=== PATIENT | male | born 1980 | race Hispanic/Latino ===

== ENCOUNTER 2019-04-21 00:50 | Emergency (ER) | payer BC ==
[~2019-04-21] VITALS: Ht 167.6 cm; Wt 79.4 kg
--- NOTE | 2019-04-21 01:47 | NUR ---
POISON CONTROL CONTACTED, SPOKE TO LISA GALLARDO, MONITOR PT FOR 4-6 HRS
[2019-04-21 02:42] LABS: BASOPHILS # (AUTO) 0.1 (0.0-0.1); BASOPHILS % 0.7 % (0.0-1.0); EOSINOPHILS # (AUTO) 0.6 (0.0-0.4); EOSINOPHILS % 5.6 % (0.0-6.0); HEMATOCRIT 47.7 % (38.2-49.6); HEMOGLOBIN 16.8 g/dL (14.0-18.0); LYMPHOCYTES # (AUTO) 3.7 (1.0-3.2); LYMPHOCYTES % 36.5 % (18.0-39.1); MEAN CORPUSCULAR HEMOGLOBIN 31.1 pg (28-32); MEAN CORPUSCULAR HGB CONC 35.2 g/dL (31-35); MEAN CORPUSCULAR VOLUME 88.2 fL (81-99); MONOCYTES # (AUTO) 1.1 (0.2-0.8); NEUTROPHILS # (AUTO) 4.6 (2.1-6.9); PLATELET COUNT 259 x10e3/uL (140-360); RED BLOOD COUNT 5.41 x10e6/uL (4.3-5.7); RED CELL DISTRIBUTION WIDTH 12.1 % (11.7-14.4)
[2019-04-21 02:50] LABS: AMPHETAMINES SCREEN,URINE POSITIVE (NEGATIVE); BENZODIAZEPINES SCREEN,URINE POSITIVE (NEGATIVE); PHENCYCLIDINE SCREEN,URINE NEGATIVE (NEGATIVE)
[2019-04-21] MEDS ORDERED: DEXTROSE 50% SYRINGE 50 ML IV STA (03:00)
[2019-04-21 03:01] LABS: ALANINE AMINOTRANSFERASE 19 IU/L (0-55); ALBUMIN 3.9 g/dL (3.5-5.0); ALBUMIN/GLOBULIN RATIO 1.1 (0.8-2.0); ALKALINE PHOSPHATASE 56 IU/L (40-150); ANION GAP 15.7 mmol/L (8-16); BLOOD UREA NITROGEN 8 mg/dL (7-26); BUN/CREATININE RATIO 9 (6-25); CALCIUM 9.1 mg/dL (8.4-10.2); CARBON DIOXIDE 26 mmol/L (22-29); CHLORIDE 103 mmol/L (98-107); CREATININE, SERUM 0.85 mg/dL (0.72-1.25); EST GLOMERULAR FILTRATION RATE > 60 ML/MIN (60-); POTASSIUM 3.7 mmol/L (3.5-5.1); SODIUM 141 mmol/L (136-145)
[2019-04-21 03:07] LABS: GLUCOSE 56 mg/dL (74-118)
[2019-04-21] MEDS ORDERED: SODIUM CHLORIDE 0.9% 1000ML 1,000 ML ONE (03:13)
[2019-04-21] MEDS ORDERED: DEXTROSE 50% SYRINGE 50 ML IV ONE (03:13)
[2019-04-21] MEDS ORDERED: SODIUM CHLORIDE 0.9% 1000ML 1,000 ML IV ONE ×2 (03:15→05:00)
[2019-04-21 06:35] LABS: BASOPHILS # (AUTO) 0.1 (0.0-0.1); BASOPHILS % 0.7 % (0.0-1.0); EOSINOPHILS # (AUTO) 0.6 (0.0-0.4); EOSINOPHILS % 6.9 % (0.0-6.0); HEMATOCRIT 43.6 % (38.2-49.6); HEMOGLOBIN 15.3 g/dL (14.0-18.0); LYMPHOCYTES # (AUTO) 3.4 (1.0-3.2); LYMPHOCYTES % 40.5 % (18.0-39.1); MEAN CORPUSCULAR HEMOGLOBIN 31.2 pg (28-32); MEAN CORPUSCULAR HGB CONC 35.1 g/dL (31-35); MEAN CORPUSCULAR VOLUME 88.8 fL (81-99); MONOCYTES # (AUTO) 0.7 (0.2-0.8); MONOCYTES % 8.2 % (4.4-11.3); NEUTROPHILS # (AUTO) 3.6 (2.1-6.9); NEUTROPHILS % 43.3 % (38.7-80.0); PLATELET COUNT 250 x10e3/uL (140-360); RED BLOOD COUNT 4.91 x10e6/uL (4.3-5.7); RED CELL DISTRIBUTION WIDTH 12.1 % (11.7-14.4)
[2019-04-21 06:49] LABS: ANION GAP 9.9 mmol/L (8-16); BLOOD UREA NITROGEN 7 mg/dL (7-26); BUN/CREATININE RATIO 10 (6-25); CARBON DIOXIDE 26 mmol/L (22-29); CHLORIDE 110 mmol/L (98-107); CREATININE, SERUM 0.73 mg/dL (0.72-1.25); EST GLOMERULAR FILTRATION RATE > 60 ML/MIN (60-); GLUCOSE 153 mg/dL (74-118); POTASSIUM 3.9 mmol/L (3.5-5.1); SODIUM 142 mmol/L (136-145)
[2019-04-21 06:50] LABS: CREATINE KINASE 85 IU/L (30-200)
[2019-04-21 07:39] VITALS: BP 101/63
== END 2019-04-21 08:20 | disposition home or self-care (01) ==
LOC: ER 00:50
DX: F14.14 Cocaine abuse with cocaine-induced mood disorder (principal); F11.14 Opioid abuse with opioid-induced mood disorder; F12.188 Cannabis abuse with other cannabis-induced disorder; I10 Essential (primary) hypertension; F32.9 Major depressive disorder, single episode, unspecified
CPT/HCPCS: 36415; 80048; 80053; 80307; 80320; 80329; 82550; 82553; 84484; 85025; 93005; 99283; J7030; J7799

== ENCOUNTER 2019-04-28 02:15 | Emergency (ER) | payer BC ==
[~2019-04-28] VITALS: Ht 167.6 cm; Wt 79.4 kg
[2019-04-28 02:37] LABS: BASOPHILS # (AUTO) 0.1 (0.0-0.1); BASOPHILS % 0.6 % (0.0-1.0); EOSINOPHILS # (AUTO) 0.8 (0.0-0.4); HEMATOCRIT 51.6 % (38.2-49.6); HEMOGLOBIN 18.3 g/dL (14.0-18.0); LYMPHOCYTES # (AUTO) 3.9 (1.0-3.2); LYMPHOCYTES % 28.9 % (18.0-39.1); MEAN CORPUSCULAR HEMOGLOBIN 31.7 pg (28-32); MEAN CORPUSCULAR HGB CONC 35.5 g/dL (31-35); MEAN CORPUSCULAR VOLUME 89.4 fL (81-99); MONOCYTES # (AUTO) 1.1 (0.2-0.8); MONOCYTES % 8.4 % (4.4-11.3); NEUTROPHILS # (AUTO) 7.5 (2.1-6.9); NEUTROPHILS % 55.8 % (38.7-80.0); PLATELET COUNT 299 x10e3/uL (140-360); RED BLOOD COUNT 5.77 x10e6/uL (4.3-5.7)
[2019-04-28 03:00] LABS: ANION GAP 19.4 mmol/L (8-16); CALCIUM 9.8 mg/dL (8.4-10.2); CREATININE, SERUM 1.7 mg/dL (0.72-1.25); POTASSIUM 3.4 mmol/L (3.5-5.1)
[2019-04-28 03:04] LABS: CREATINE KINASE 192 IU/L (30-200)
[2019-04-28 03:05] LABS: ALANINE AMINOTRANSFERASE 21 IU/L (0-55); ALBUMIN 4.4 g/dL (3.5-5.0); ALKALINE PHOSPHATASE 61 IU/L (40-150)
[2019-04-28 03:07] LABS: SALICYLATE < 5.0 mg/dL (0-30)
[2019-04-28 03:17] LABS: CLARITY,URINE SL CLOUDY (CLEAR); COLOR,URINE YELLOW (YELLOW)
[2019-04-28 03:18] LABS: AMPHETAMINES SCREEN,URINE NEGATIVE (NEGATIVE); KETONES,URINE NEGATIVE (NEGATIVE); LEUKOCYTE ESTERASE ,URINE NEGATIVE (NEGATIVE); NITRITE,URINE NEGATIVE (NEGATIVE); PHENCYCLIDINE SCREEN,URINE NEGATIVE (NEGATIVE); PROTEIN,URINE DIPSTICK TRACE (NEGATIVE)
[2019-04-28 03:19] LABS: BENZODIAZEPINES SCREEN,URINE NEGATIVE (NEGATIVE); BILIRUBIN,URINE SMALL (NEGATIVE); URINE UROBILINOGEN 0.2 mg/dL (0.2 - 1); WBC,URINE (MAN) 0-5 /HPF (0-5)
[2019-04-28 03:20] LABS: BACTERIA,URINE RARE /HPF; EPITHELIAL CELLS,URINE FEW /LPF; RBC,URINE 0-5 /HPF (0-5)
[2019-04-28 03:22] LABS: BILIRUBIN,DIRECT 0.3 mg/dL (0.0-0.5)
[2019-04-28] MEDS ORDERED: SODIUM CHLORIDE 0.9% 1000ML 1,000 ML ONE (03:40)
[2019-04-28] MEDS ORDERED: SODIUM CHLORIDE 0.9% 1000ML 1,000 ML IV ONE (03:45)
[2019-04-28] MEDS ORDERED: POTASSIUM CHLORIDE 20 MEQ TAB CR PO STA (03:58)
--- NOTE | 2019-04-28 07:35 | NUR ---
Nursing report received from Burt GALLARDO, MAT team at bedside evaluating patient, sitter present.
--- NOTE | 2019-04-28 09:25 | NUR ---
Nurse to Nurse report given to Denisha GALLARDO at [facility]. Info obtained for Doc to Doc and provided to Dr. Estrada.
--- NOTE | 2019-04-28 10:30 | NUR ---
EMS called for transport to [facility].
[2019-04-28 11:32] VITALS: BP 109/80
== END 2019-04-28 11:38 ==
LOC: ER 02:15
DX: T14.91XA Suicide attempt, initial encounter (principal); T45.0X2A Poisoning by antiallergic and antiemetic drugs, intentional self-harm, initial encounter; T46.4X2A Poisoning by angiotensin-converting-enzyme inhibitors, intentional self-harm, initial encounter; Y92.008 Other place in unspecified non-institutional (private) residence as the place of occurrence of the external cause; F33.1 Major depressive disorder, recurrent, moderate; I10 Essential (primary) hypertension
CPT/HCPCS: 36415; 80048; 80076; 80307; 80320; 80329 ×2; 81001; 82550; 82553; 84484; 85025; 93005; 99284; J7030

== ENCOUNTER 2023-09-10 10:02 | Emergency (ER) | payer SELFPAY ==
[~2023-09-10] VITALS: Ht 167.6 cm; Wt 77.1 kg
[2023-09-10] MEDS ORDERED: LABETALOL HCL 20 MG/4 ML SYRINGE IV ONE (10:30)
[2023-09-10] MEDS ORDERED: LABETALOL HCL 20 ML ONE (10:37)
[2023-09-10] MEDS ORDERED: SODIUM CHLORIDE 0.9% 500ML 500 ML ONE (10:38)
[2023-09-10] MEDS ORDERED: Azithromycin IV 500 MG 10 ML VIAL ONE (10:38)
[2023-09-10] MEDS ORDERED: CEFTRIAXONE 1 GM VIAL ONE (10:38)
[2023-09-10] MEDS ORDERED: SODIUM CHLORIDE 0.9% 1000ML 2,000 ML ONE (10:39)
[2023-09-10] MEDS: SODIUM CHLORIDE 0.9% 1000ML 2,310 ML IV SCH (10:48)
[2023-09-10 10:49] LABS: BASOPHILS # (AUTO) 0.1 (0.0-0.1); BASOPHILS % 0.6 % (0.0-1.0); EOSINOPHILS % 0.1 % (0.0-6.0); HEMATOCRIT 41.4 % (38.2-49.6); HEMOGLOBIN 13.4 g/dL (14.0-18.0); LYMPHOCYTES % 14.5 % (18.0-39.1); MEAN CORPUSCULAR HEMOGLOBIN 28.3 pg (28-32); MEAN CORPUSCULAR HGB CONC 32.4 g/dL (31-35); MEAN CORPUSCULAR VOLUME 87.3 fL (81-99); MONOCYTES # (AUTO) 0.9 (0.2-0.8); MONOCYTES % 6.1 % (4.4-11.3); NEUTROPHILS % 78.4 % (38.7-80.0); PLATELET COUNT 314 x10e3/uL (140-360); RED BLOOD COUNT 4.74 x10e6/uL (4.3-5.7); RED CELL DISTRIBUTION WIDTH 14.8 % (11.7-14.4); WHITE BLOOD COUNT 14.03 x10e3/uL (4.8-10.8)
[2023-09-10] MEDS: CEFTRIAXONE 1 GM VIAL IV SCH (10:49)
[2023-09-10 10:54] LABS: INR 1.32; PARTIAL THROMBOPLASTIN TIME 30.2 seconds (23.8-35.5); PROTHROMBIN TIME 17.2 seconds (11.9-14.5)
[2023-09-10] MEDS: ONDANSETRON HCL INJ 2MG/ML 2ML 2 MG/ML VIAL IV STA ×3 (10:56→17:34)
[2023-09-10] MEDS: AZITHROMYCIN 250 MG TAB PO SCH (10:57)
[2023-09-10] MEDS ORDERED: SODIUM CHLORIDE 0.9% 250ML 250 ML ONE (10:57)
[2023-09-10 11:03] LABS: ALBUMIN 3.8 g/dL (3.5-5.0); ANION GAP 16.7 mmol/L (8-16); BILIRUBIN,TOTAL 2.5 mg/dL (0.2-1.2); CALCIUM 8.9 mg/dL (8.4-10.2); CREATININE, SERUM 1.27 mg/dL (0.72-1.25); POTASSIUM 3.7 mmol/L (3.5-5.1); TOTAL PROTEIN 7.8 g/dL (6.5-8.1)
[2023-09-10] MEDS ORDERED: IOPAMIDOL 370 MG/ML 100 ML INFUS..BTL INJ ONE (11:11)
[2023-09-10] MEDS ORDERED: GLUCAGON FOR INJ 1 MG VIAL ONE (11:34)
[2023-09-10] MEDS ORDERED: ENOXAPARIN SODIUM INJ 100 MG/ML SYR SC ONE (11:41)
[2023-09-10 11:42] VITALS: PULSE 94; RESP 20; O2SAT 89
[2023-09-10 11:55] VITALS: PULSE 86; RESP 20
[2023-09-10] MEDS: HEPARIN SOD/DEXTROSE 5% 25000 UNIT/250 ML BAG IV SCH (12:30)
[2023-09-10] MEDS: NOREPINEPHRINE 8 MG/D5W 250 ML 250 ML IV SCH (12:40)
[2023-09-10] MEDS ORDERED: SUCCINYLCHOLINE CHLORIDE 20 MG/ML 10ML VIAL ONE (12:57)
[2023-09-10] MEDS ORDERED: WATER STERILE 10 ML VIAL ONE (12:57)
[2023-09-10] MEDS ORDERED: VECURONIUM BROMIDE FOR INJ 20 MG VIAL ONE (12:57)
[2023-09-10] MEDS ORDERED: MIDAZOLAM HCL 2 MG/2 ML VIAL ONE (12:57)
[2023-09-10] MEDS ORDERED: ETOMIDATE 2 MG/ML 10 ML INJ IV ONE (12:57)
[2023-09-10] MEDS ORDERED: EPINEPHRINE HCL SYRINGE ONE (12:58)
[2023-09-10] MEDS ORDERED: HEPARIN 25,000 UNIT DRIP IV ONE (12:58)
[2023-09-10] MEDS ORDERED: SODIUM CHLORIDE FLUSH 10 ML SYR ONE (12:58)
[2023-09-10] MEDS ORDERED: LIDOCAINE HCL 2% 100 MG/5 ML IV ONE (12:58)
[2023-09-10] MEDS ORDERED: DEXTROSE 5% 250 ML BAG IV ONE (12:58)
[2023-09-10] MEDS ORDERED: SODIUM BICARBONATE 8.4% INJ 50 ML SYR ONE (12:58)
[2023-09-10] MEDS ORDERED: DEXTROSE 50% SYRINGE 50 ML IV ONE (12:58)
[2023-09-10] MEDS ORDERED: SODIUM CHLORIDE 0.9% 1000 ML BAG ONE (12:58)
[2023-09-10] MEDS: EPINEPHRINE HCL 1:1000 1ML 4 MG in DEXTROSE 5% 250ML 250 ML IV SCH (13:00)
[2023-09-10] MEDS ORDERED: LIDOCAINE HCL 1% LOCAL INJ 20 ML VIAL ONE (13:11)
[2023-09-10 14:15] LABS: CLARITY,URINE SL CLOUDY (CLEAR); COLOR,URINE YELLOW (YELLOW); GLUCOSE, URINE NEGATIVE (NEGATIVE); KETONES,URINE NEGATIVE (NEGATIVE); LEUKOCYTE ESTERASE ,URINE NEGATIVE (NEGATIVE); NITRITE,URINE NEGATIVE (NEGATIVE); PH,URINE 5.5 (5 - 7); PROTEIN,URINE DIPSTICK 2+ (NEGATIVE); URINE UROBILINOGEN 0.2 mg/dL (0.2 - 1)
[2023-09-10 14:16] LABS: BILIRUBIN,URINE NEGATIVE (NEGATIVE)
[2023-09-10 14:17] LABS: AMPHETAMINES SCREEN,URINE POSITIVE (NEGATIVE); BENZODIAZEPINES SCREEN,URINE NEGATIVE (NEGATIVE); CANNABINOIDS SCREEN,URINE NEGATIVE (NEGATIVE); METHADONE SCREEN, URINE NEGATIVE (NEGATIVE); OPIATES SCREEN,URINE NEGATIVE (NEGATIVE); PHENCYCLIDINE SCREEN,URINE NEGATIVE (NEGATIVE)
[2023-09-10 14:20] LABS: ABG HCO3 11 mmol/L (22-26); ABG PCO2 27 mmHg (35-45); ABG PH 7.23 (7.35-7.45); ABG PO2 206 mmHg (80-105); ABG TCO2 12
[2023-09-10 14:32] LABS: AMORPHOUS SEDIMENT,URINE MODERATE (FEW); BACTERIA,URINE FEW /HPF; RBC,URINE 0-5 /HPF (0-5)
[2023-09-10 14:33] LABS: SPERM,URINE PRESENT
[2023-09-10 17:01] VITALS: PULSE 87; RESP 24; TEMP 99.3; O2SAT 100
[2023-09-10] MEDS: LEVETIRACETAM 500MG/5ML VIAL 1,000 MG in SODIUM CHLORIDE 0.9% 100 ML IV ONE (17:32)
[2023-09-10] MEDS: ENOXAPARIN SODIUM INJ 100 MG/ML SYR SC ONE (17:32)
[2023-09-10] MEDS: LABETALOL HCL 5 MG/ML 20ML VIAL IV ONE (17:32)
[2023-09-10] MEDS: GLUCAGON FOR INJ 1 MG VIAL IV ONE (17:33)
[2023-09-10] MEDS: HEPARIN SOD (PORCINE) 5,000 UNIT/ML VIAL IV ONE (17:33)
[2023-09-10] MEDS: ETOMIDATE 2 MG/ML 10 ML INJ IV STA (17:34)
[2023-09-10] MEDS: SODIUM BICARBONATE 8.4% INJ 50 ML SYR IV STA ×2 (17:34)
[2023-09-10] MEDS: SUCCINYLCHOLINE 200 MG/10 ML SYR IV STA (17:34)
[2023-09-10] MEDS: MIDAZOLAM HCL 2 MG/2 ML VIAL IV STA ×2 (17:34→17:35)
[2023-09-10] MEDS: VECURONIUM BROMIDE FOR INJ 20 MG VIAL IV STA (17:34)
[2023-09-10] MEDS: DEXTROSE 50% SYRINGE 50 ML IV STA (17:35)
[2023-09-10] MEDS: SODIUM CHLORIDE FLUSH 10 ML SYR IV PRN (17:35)
[2023-09-15 18:08] LABS: ABG HCO3 18 mmol/L (22-26); ABG PCO2 37 mmHg (35-45); ABG PH 7.28 (7.35-7.45); ABG PO2 46 mmHg (80-105); ABG TCO2 19
[2023-09-15 18:08] LABS: ABG HCO3 11 mmol/L (22-26); ABG PCO2 27 mmHg (35-45); ABG PH 7.23 (7.35-7.45); ABG PO2 206 mmHg (80-105); ABG TCO2 12
== END 2023-09-10 17:05 | disposition other institution (70) ==
LOC: ER 10:15
DX: R50.9 Fever, unspecified (principal); A41.9 Sepsis, unspecified organism; R09.02 Hypoxemia; R06.02 Shortness of breath; R09.89 Other specified symptoms and signs involving the circulatory and respiratory systems; I95.9 Hypotension, unspecified; F15.10 Other stimulant abuse, uncomplicated; R00.0 Tachycardia, unspecified; Z11.52 Encounter for screening for COVID-19
CPT/HCPCS: 31500; 36415; 36555; 36556; 36600; 70450; 71045; 71260; 74177; 76937; 80053; 80307; 81001; 82805; 82948; 83605; 85025; 85610; 85730; 87040; 87086; 92950; 93005; 94002; 94760; 94799; 99285; J0171; J0330; J0456; J0696; J1610; J1650; J1953; J2001 ×2; J2250; J2405; J3490; J7030 ×2; J7040; J7050 ×2; J7799; Q9967; U0002